=== PATIENT | male | born 2000 | race Two or more races ===

== ENCOUNTER 2024-05-06 01:00 | Inpatient (IN) | payer OTHER ==
[~2024-05-06] VITALS: Ht 172.7 cm; Wt 94.5 kg
[2024-05-06] VITALS (10 sets, daily range): BP systolic 115–121; BP diastolic 59–69; PULSE 68–93; RESP 14–70; TEMP 98.2–98.8; O2SAT 93–100
[2024-05-06 01:50] LABS: Basophils # (auto) 0.1 10 ^3/uL (0-0.2); Basophils % (auto) 0.4 % (0.0-2.0); Eosinophils # (auto) 0 10 ^3/uL (0-0.8); Lymphocytes # (auto) 1.3 10 ^3/uL (0.4-5.4); Mean Corpuscular Hemoglobin 32.9 pg (28.0-32.0)
[2024-05-06 01:52] LABS: Hemoglobin 20.4 g/dL (13.5-17.5); Lymphocytes % (auto) 7.7 % (10.0-50.0); Mean Corpuscular Hgb Conc. 35.4 g/dL (32.0-36.0); Monocytes # (auto) 0.6 10 ^3/uL (0-1.3); Monocytes % (auto) 3.4 % (0.0-12.0); Neutrophils # (auto) 14.5 10 ^3/uL (1.6-8.6); Neutrophils % (auto) 88.5 % (37.0-80.0); Platelet Count (auto) 187 10^3/uL (140-450); Red Cell Distribution Width 13.6 % (11.8-14.3); White Blood Cell 16.4 10^3/uL (4.4-10.8)
[2024-05-06 01:59] LABS: Hematocrit 57.7 % (41.0-53.0)
[2024-05-06 02:06] LABS: Albumin 4.6 g/dL (3.2-4.8); Alkaline Phosphatase 72 U/L (46-116); Anion Gap 13 (5-15); BUN/Creatinine Ratio 19.8 (10.0-20.0); Calcium 9.8 mg/dL (8.7-10.4); Carbon Dioxide 25 mmol/L (20-31); Chloride 99 mmol/L (98-107); Magnesium 2.4 mg/dL (1.6-2.6); Potassium 3.7 mmol/L (3.5-5.1); Sodium 137 mmol/L (136-145); Total Protein 7.3 g/dL (5.7-8.2)
[2024-05-06 02:09] LABS: Alanine Aminotransferase 221 U/L (7-40); Bilirubin, Total 1.2 mg/dL (0.2-1.0); Blood Urea Nitrogen 24 mg/dL (9-23); Glucose 126 mg/dL (74-106)
[2024-05-06 02:17] LABS: Creatine Kinase IFCC > 39000 U/L (46-171)
[2024-05-06 02:21] LABS: Aspartate Aminotransferase 1997 U/L (13-40)
[2024-05-06 03:17] LABS: Urine Amorphous Crystal FEW /hpf (None Seen); Urine Bacteria FEW /hpf (None Seen); Urine Blood 3+ /uL (Negative); Urine Clarity Turbid (Clear); Urine Color Dark-Brown (Yellow); Urine Mucus FEW (None Seen); Urine Protein, UAD 2+ (Negative); Urine Specific Gravity 1.027 (1.001-1.035); Urine Squamous Epithelial Cell None Seen /hpf (<5); Urine Urobilinogen Normal (Negative); Urine WBC 6 /HPF (0-3)
[2024-05-06] MEDS: SODIUM CHLORIDE 0.9% 1,000 ML IV ONE ×3 (03:45→06:22)
[2024-05-06 04:12] LABS: Uric Acid 10.4 mg/dL (3.7-9.2)
[2024-05-06 04:14] LABS: Phosphorus 4.8 mg/dL (2.4-5.1)
--- NOTE | 2024-05-06 04:17 | ED.PDOC ---
General HPI Comments 24-YEAR-OLD MALE PRESENTS TO ER URINARY COMPLAINT X1 DAY. PATIENT REPORTS HE HAS BEEN EXPERIENCING DARK BROWN URINE AND HEMATURIA ALONG WITH 4/10 DIFFUSE MUSCLE PAIN THAT STARTED AT 5 PM PRIOR TO ARRIVAL TO ER. HE STATES THAT HIS SYMPTOMS STARTED ONE DAY AFTER HE DID INTENSIVE EXERCISING. PATIENT PRESENTS TO ER AMBULATORY ON ARRIVAL, ALERT AND ORIENTED X 4, WITH STEADY GAIT, IN NO DISTRESS. DENIES FEVER, NAUSEA/VOMITING, ABDOMINAL PAIN, CONFUSION, HEADACHE, DIZZINESS, SHORTNESS OF BREATH, CHEST PAIN, PALPITATIONS, FURTHER CHANGES IN URINATION OR ANY FURTHER SYMPTOMS/COMPLAINTS Chief Complaint: Urinary Time Seen by MD: :24 Primary Care Provider: UNKNOWN Reviewed notes: Nurses Notes, Medications, Allergies Allergies: Coded Allergies: NO KNOWN ALLERGIES (Unverified , 05/06/24) Information Source: Patient Mode of Arrival: Ambulatory Past Medical History PAST MEDICAL HISTORY: Denies Surgical History: Denies all surgeries Family History Family History: Unknown Social History Smoker: Non-Smoker Alcohol: Denies ETOH Use Drugs: Denies Drug Use Lives In: Home Constitutional: denies: chills, diaphoresis, fatigue, fever, malaise, sweats, weakness, others EENTM: denies: blurred vision, double vision, ear bleeding, ear discharge, ear drainage, ear pain, ear ringing, eye pain, eye redness, hearing loss, mouth pain, mouth swelling, nasal discharge, nose bleeding, nose congestion, nose pain, photophobia, tearing, throat pain, throat swelling, voice changes, others Respiratory: denies: cough, hemoptysis, orthopnea, SOB at rest, shortness of breath, SOB with excertion, stridor, wheezing, others Cardiovascular: denies: chest pain, dizzy spells, diaphoresis, Dyspnea on exertion, edema, irregular heart beat, left arm pain, lightheadedness, palpitations, PND, syncope, others Gastrointestinal: denies: abdomen distended, abdominal pain, blood streaked bowels, constipated, diarrhea, dysphagia, difficulty swallowing, hematemesis, melena, nausea, poor appetite, poor fluid intake, rectal bleeding, rectal pain, vomiting, others Genitourinary: reports: others ( STATED IN HPI) Neurological: denies: dizziness, fainting, headache, left sided numbness, left sided weakness, numbness, paresthesia, pre-existing deficit, right sided numbness, right sided weakness, seizure, speech problems, tingling, tremors, weakness, others Musculoskeletal: reports: others ( STATED IN HPI) Integumetry: denies: bruises, change in color, change in hair/nails, dryness, laceration, lesions, lumps, rash, wounds, others Allergic/Immunocompromised: denies: Difficulty Healing, Frequent Infections, Hives, Itching, others Hematologic/Lymphatic: denies: anemia, blood clots, easy bleeding, easy bruising, swollen glands, others Endocrine: denies: excessive hunger, excessive sweating, excessive thirst, excessive urination, flushing, intolerance to cold, intolerance to heat, unexplained weight gain, unexplained weight loss, others Psychiatric: denies: anxiety, bipolar disorder, depression, hopeless, panic disorder, schizophrenia, sleepless, suicidal, others Physical Exam General Appearance: No Apparent Distress, Obese HEENT: Normal ENT Inspection, PERRL/EOMI, Pharynx Normal, TMs Normal Neck: Full Range of Motion, Non-Tender, Normal Respiratory: Chest Non-Tender, Lungs Clear, No Accessory Muscle Use, No Respiratory Distress, Normal Breath Sounds Cardiovascular: No Murmur, No Gallop, Regular Rate/Rhythm Breast Exam: Deferred Gastrointestinal: No Organomegaly, Non Tender, No Pulsatile Mass, Normal Bowel Sounds, Soft Genitalia: Deferred Pelvic: Deferred Rectal: Deferred Extremities: Normal capillary refill, Normal range of motion Neurologic: Alert, hand sizer II-XII nml as Tested, No Motor Deficits, Normal Affect, Normal Mood, No Sensory Deficits Cerebellar Function: Normal Reflexes: Normal Skin: Dry, Normal Color, Warm Peripheral Pulses: 2+ Radial (R), 2+ Radial (L), 2+ Brachial (R), 2+ Brachial (L) Lymphatic: No Adenopathy Was a procedure done? Was a procedure done?: No Sedation Sedation?: No EKG EKG : Pulse Rate (adult): 99 Cardiac Rhythm: NSR (SR) Block: None Hypertrophy: None ST: Normal Differential Diagnosis Kidney stone (Female): N/A Kidney stone (Male): Cholelithiasis, Renal failure, Renal infarction, Other (COMPARTMENT SYNDROME) X-Ray, Labs, Meds, VS Vital Signs Date Time Temp Pulse Resp B/P (MAP) Pulse Ox O2 Delivery O2 Flow Rate FiO2 05/06/24 04:17 99 05/06/24 04:13 98 16 98 Room Air 05/06/24 04:11 97.9 98 16 105/61 (76) 96 97.9 05/06/24 04:06 99 05/06/24 01:13 98.6 104 18 144/92 (109) 98 Lab Test 05/06/24 03:45 05/06/24 01:32 05/06/24 01:15 Range/Units Blood Gas Specimen Type Venous Blood Gas Sample Site Vbg - n/a Blood Gas Patient Temperature 37.0 Arterial Blood Date Drawn [id number] Inocencio Test N/a Venous Blood pH 7.346 7.320-7.430 Venous Blood pCO2 at Patient Temp 44.0 38.0-54.0 mmHg Venous Blood pO2 at Patient Temp < 36.5 23.0-48.0 mmHg Venous Blood HCO3 23.5 22.0-29.0 mmol/L Venous Blood Base Excess -2.2 L -2.0-3.0 mmol/L Blood Gas Modality Room air FiO2 % 21.0 White Blood Count 16.4 H 4.4-10.8 10^3/uL Red Blood Count 6.20 H 4.5-5.90 10^6/uL Hemoglobin 20.4 H 13.5-17.5 g/dL Hematocrit 57.7 H 41.0-53.0 % Mean Corpuscular Volume 93.0 80.0-100.0 fL Mean Corpuscular Hemoglobin 32.9 H 28.0-32.0 pg Mean Corpuscular Hemoglobin Concent 35.4 32.0-36.0 g/dL Red Cell Distribution Width 13.6 11.8-14.3 % Platelet Count 187 140-450 10^3/uL Mean Platelet Volume 8.0 6.9-10.8 fL Neutrophils (%) (Auto) 88.5 H 37.0-80.0 % Lymphocytes (%) (Auto) 7.7 L 10.0-50.0 % Monocytes (%) (Auto) 3.4 0.0-12.0 % Eosinophils (%) (Auto) 0.0 0.0-7.0 % Basophils (%) (Auto) 0.4 0.0-2.0 % Neutrophils # (Auto) 14.5 H 1.6-8.6 10 ^3/uL Lymphocytes # (Auto) 1.3 0.4-5.4 10 ^3/uL Monocytes # (Auto) 0.6 0-1.3 10 ^3/uL Eosinophils # (Auto) 0 0-0.8 10 ^3/uL Basophils # (Auto) 0.1 0-0.2 10 ^3/uL Nucleated Red Blood Cells 0.0 % Prothrombin Time 11.4 9.3-11.8 sec Prothrombin Time INR 1.08 0.9-1.15 Activated Partial Thromboplast Time 27.3 24.5-34.5 SEC Sodium Level 137 136-145 mmol/L Potassium Level 3.7 3.5-5.1 mmol/L Chloride Level 99 98-107 mmol/L Carbon Dioxide Level 25 20-31 mmol/L Anion Gap 13 5-15 Blood Urea Nitrogen 24 H 9-23 mg/dL Creatinine 1.21 0.700-1.30 mg/dL Glomerular Filtration Rate Calc 86 >90 mL/min BUN/Creatinine Ratio 19.8 10.0-20.0 Serum Glucose 126 H 74-106 mg/dL Uric Acid 10.4 H 3.7-9.2 mg/dL Calcium Level 9.8 8.7-10.4 mg/dL Phosphorus Level 4.8 2.4-5.1 mg/dL Magnesium Level 2.4 1.6-2.6 mg/dL Total Bilirubin 1.2 H 0.2-1.0 mg/dL Aspartate Amino Transferase (AST) 1997 H 13-40 U/L Alanine Aminotransferase (ALT) 221 H 7-40 U/L Alkaline Phosphatase 72 46-116 U/L Creatine Kinase > 72644 H 46-171 U/L Total Protein 7.3 5.7-8.2 g/dL Albumin 4.6 3.2-4.8 g/dL Urine Color Dark-brown Yellow Urine Clarity Turbid H Clear Urine pH 6.0 5.0-9.0 Urine Specific [place] 1.027 1.001-1.035 Urine Protein 2+ H Negative Urine Ketones 2+ H Negative Urine Blood 3+ H Negative /uL Urine Nitrite Negative Negative Urine Bilirubin Negative Negative Urine Urobilinogen Normal Negative mg/dL Urine Leukocyte Esterase Negative Negative /uL Urine RBC 11 0 - 3 /hpf Urine Microscopic WBC 6 H 0-3 /HPF Urine Squamous Epithelial Cells None seen <5 /hpf Urine Amorphous Crystals Few None Seen /hpf Urine Bacteria Few H None Seen /hpf Urine Mucus Few None Seen Urine Glucose Normal Normal mg/dL Current Medications Medications (Trade) Dose Ordered Sig/Brianna Route Start Time Stop Time Status Last Admin Sodium Chloride 1,000 ml @ 1,000 mls/hr Q1H ONCE IV 05/06/24 03:45 05/06/24 04:44 DC 05/06/24 03:45 Sodium Chloride 1,000 ml @ 1,000 mls/hr Q1H ONCE IV 05/06/24 03:45 05/06/24 04:44 DC 05/06/24 04:36 PATIENT: JONATHAN MENDEZCCT: [id number]: [id number] : 2000 LOC: ER ROOM / BED: / AGE / SEX: 24 / M ADM STATUS: REG ER SERVICE 0337 ORDERING PHYSICIAN: NASIR NARANJO PROCEDURE(s): ABPL - CT AB PEL WO CON-NO ORAL OR IV REASON: ABDOMINAL PAIN ORDER NUMBER(s): [id number], ACCESSION NUMBER(s): [id number] Exam: CT CT AB PEL WO CON-NO ORAL OR IV History: ABDOMINAL PAIN Comparison Study: None Technique: Multidetector spiral CT of the abdomen was performed from lung bases to pubic symphysis. Imaging was performed without IV contrast. Axial, coronal and sagittal multiplanar reformats were obtained from the axial data set by the technologist. Radiation Dose : 1. Abdomen/Pelvis: CTDIvol 12.1 mGy, DLP 616.9 mGy*cm. Findings: Evaluation of solid organs is limited due to lack of intravenous contrast use. Lung Bases: No acute or significant lung base finding. Normal heart size. No pleural or pericardial effusion. Liver: The liver is normal in size. No focal lesions. Gallbladder and Biliary Tree: Unremarkable Spleen: Unremarkable Pancreas: The pancreas is grossly normal in appearance. Adrenal Glands: Unremarkable Kidneys: Kidneys are grossly normal without calculi or hydronephrosis. Bladder: Grossly unremarkable for degree of distention. Bowel: The stomach is grossly normal in appearance. Moderate volume colonic stool. Normal appendix is visualized in the right lower quadrant without findings of appendicitis. Ascites: Absent Lymphadenopathy: No mesenteric, retroperitoneal or periportal lymphadenopathy. Abdominal Wall and Mesentery: Unremarkable. Vasculature: The visualized abdominal aorta is normal in size and caliber. Evaluation of abdominal and pelvic vessels is limited due to lack of intravenous contrast. Pelvic Organs: Unremarkable Musculoskeletal: No aggressive focal bony lesions, acute fractures or dislocation. IMPRESSION: Moderate volume colonic stool. Otherwise, no acute finding. Radiation optimization: All CT scans at this facility use at least one of these dose optimization techniques: automated exposure control mA and/or kV adjustment per patient size (includes targeted exams where dose is matched to clinical indication) or iterative reconstruction. ATED BY: JAYANT JOHNSON MD DICTATED DATE/TIME: 05/06/24457 SIGNED BY: JAYANT JOHNSON MD SIGNED DATE/TIME: 05/06/24457 CC: CBC reviewed -WBC 16.4 CMP reviewed- BUN 24, creatinine 1.21, bilirubin 1.2, AST 1997, ALT 221 Phosphorus and magnesium reviewed-normal Creatinine kinase [place] 35[address] reviewed Uric acid reviewed-10.2 VBG reviewed EKG reviewed CT abdomen/pelvis without contrast reviewed Urinalysis reviewed-urine color dark brown, urine protein 2+, urine ketones 2+, urine blood 3+ Hep-Lock IV ordered NS 1 L IV ordered NS 1 L IV ordered Patient resting comfortably at bedside in no distress Patient admitted to hospitalist fo rhabdomyolysis Time of 1ST Reevaluation: 03:44 Reevaluation 1ST: N/A Patient Education/Counseling: Diagnosis, Treatment, Prognosis, Need For Follow Up Family Education/Counseling: No Family Present Departure 1 Departure Time of Disposition: 04:08 Impression: Primary Impression: Rhabdomyolysis Qualified Codes: M62.82 - Rhabdomyolysis Disposition: 09 ADMITTED INPATIENT Condition: Serious Discharged With: Self Critical Care Note Critical Care Time?: No Stability Stability form required: No Heart Score Heart Score: Heart Score Response (Comments) Value History N/A 0 EKG N/A 0 Age N/A 0 Risk Factors N/A 0 Troponin N/A 0 Total 0 NASIR NARANJO May 06, 2024 04:17
[2024-05-06 04:18] LABS: INR 1.08 (0.9-1.15); Partial Thromboplastin Time 27.3 SEC (24.5-34.5); Prothrombin Time 11.4 sec (9.3-11.8)
--- NOTE | 2024-05-06 04:54 | DVHHPRES ---
History of Present Illness Resident Creating Document: MAX SALGADO RESDIENT History of Present Illness This is a 24-year-old male with no significant past medical history came to the hospital due to red urine. Per patient, the patient had strenuous exercise (weightlifting and running) 1 day back, on next day the patient developed generalized body pain and leg cramps (specifically the calf and feet) and the urine became dark we subsequently became red and more dark. Patient also reports nausea, sweating, cold, and urgency. Patient denies fever, shortness of breaths, chest pain, abdominal pain, any recent sick contact or travel history. PMHx: Not significant PSHx: Nonsignificant Family history: Patient has history of hypotension on father side and diabetes on mother's side Social history: Patient lives at home with family, denies smoking, alcohol or any other drug use Home medication: Ibuprofen occasionally for the pain Allergic history: No known allergy Review of Systems Review of Systems General: Patient reports generalized body pain and cold HEENT: No headaches, visiual changes, hearing loss, tinnitus, nasal congestion and discharge, and sore throat. Cardiovascular: Denies chest pain, palpitations, dyspnea on exertion, orthopnea, or claudication. Respiratory: No cough, and wheezing. Gastrointestinal: Denies nausea, vomiting, dysphagia, odynophagia, heartburn, abdominal pain, flatulence, bloating, diarrhea, constipation, change in stool, or blood in stool. Genitourinary: Reports urgency and red/dark urine Endocrine: No heat or cold intolerance, polydipsia, polyuria, and polyphagia. Neurological: No dizziness, extremity weakness and numbness, tremors, gait disturbance, seizures, and memory impairment. Psychiatric: Denies depression, anxiety,or insomnia. Musculoskeletal: Reports cough and feet pain Skin: No rashes, itching, skin lesion, changes in hair, nail, skin texture and breast. Hematologic/Lymphatic: Denies easy bruising, bleeding tendencies, or lymph node enlargement. Allergies: Coded Allergies: NO KNOWN ALLERGIES (Unverified , 05/06/24) Exam Vital Signs Vital Signs Date Time Temp Pulse Resp B/P (MAP) Pulse Ox O2 Delivery O2 Flow Rate FiO2 05/06/24 04:17 99 05/06/24 04:13 16 98 Room Air 05/06/24 04:11 97.9 105/61 (76) 97.9 Exam General Appearance: Alert, Oriented X3, Cooperative, No acute distress HEENT: Atraumatic, PERRLA, EOMI, Mucous membrane moist/pink Respiratory: Clear to auscultation, Normal air movement Cardiovascular: Regular rate, Normal S1, Normal S2, No murmurs, no chest wall tenderness Abdominal: Normal bowel sounds, Soft, No tenderness, No hepatospenomegaly, No masses Extremities: No clubbing, No cyanosis, No edema, Normal pulses, No tenderness/swelling Skin: No rashes, No breakdown, No significant lesion Neuro: Normal gait, Normal speech, Strength at 5/5 X4 ext, Normal tone, Sensation intact, Cranial nerves 3-12 NL, Reflexes 2+ Psych/Mental Status: Mental status NL, Mood NL Labs/Xrays Labs Test 05/06/24 03:45 05/06/24 01:32 05/06/24 01:15 Range/Units Blood Gas Specimen Type Venous Blood Gas Sample Site Vbg - n/a Blood Gas Patient Temperature 37.0 Arterial Blood Date Drawn [id number] Inocencio Test N/a Venous Blood pH 7.346 7.320-7.430 Venous Blood pCO2 at Patient Temp 44.0 38.0-54.0 mmHg Venous Blood pO2 at Patient Temp < 36.5 23.0-48.0 mmHg Venous Blood HCO3 23.5 22.0-29.0 mmol/L Venous Blood Base Excess -2.2 L -2.0-3.0 mmol/L Blood Gas Modality Room air FiO2 % 21.0 White Blood Count 16.4 H 4.4-10.8 10^3/uL Red Blood Count 6.20 H 4.5-5.90 10^6/uL Hemoglobin 20.4 H 13.5-17.5 g/dL Hematocrit 57.7 H 41.0-53.0 % Mean Corpuscular Volume 93.0 80.0-100.0 fL Mean Corpuscular Hemoglobin 32.9 H 28.0-32.0 pg Mean Corpuscular Hemoglobin Concent 35.4 32.0-36.0 g/dL Red Cell Distribution Width 13.6 11.8-14.3 % Platelet Count 187 140-450 10^3/uL Mean Platelet Volume 8.0 6.9-10.8 fL Neutrophils (%) (Auto) 88.5 H 37.0-80.0 % Lymphocytes (%) (Auto) 7.7 L 10.0-50.0 % Monocytes (%) (Auto) 3.4 0.0-12.0 % Eosinophils (%) (Auto) 0.0 0.0-7.0 % Basophils (%) (Auto) 0.4 0.0-2.0 % Neutrophils # (Auto) 14.5 H 1.6-8.6 10 ^3/uL Lymphocytes # (Auto) 1.3 0.4-5.4 10 ^3/uL Monocytes # (Auto) 0.6 0-1.3 10 ^3/uL Eosinophils # (Auto) 0 0-0.8 10 ^3/uL Basophils # (Auto) 0.1 0-0.2 10 ^3/uL Nucleated Red Blood Cells 0.0 % Prothrombin Time 11.4 9.3-11.8 sec Prothrombin Time INR 1.08 0.9-1.15 Activated Partial Thromboplast Time 27.3 24.5-34.5 SEC Sodium Level 137 136-145 mmol/L Potassium Level 3.7 3.5-5.1 mmol/L Chloride Level 99 98-107 mmol/L Carbon Dioxide Level 25 20-31 mmol/L Anion Gap 13 5-15 Blood Urea Nitrogen 24 H 9-23 mg/dL Creatinine 1.21 0.700-1.30 mg/dL Glomerular Filtration Rate Calc 86 >90 mL/min BUN/Creatinine Ratio 19.8 10.0-20.0 Serum Glucose 126 H 74-106 mg/dL Uric Acid 10.4 H 3.7-9.2 mg/dL Calcium Level 9.8 8.7-10.4 mg/dL Phosphorus Level 4.8 2.4-5.1 mg/dL Magnesium Level 2.4 1.6-2.6 mg/dL Total Bilirubin 1.2 H 0.2-1.0 mg/dL Aspartate Amino Transferase (AST) 1997 H 13-40 U/L Alanine Aminotransferase (ALT) 221 H 7-40 U/L Alkaline Phosphatase 72 46-116 U/L Creatine Kinase > 91576 H 46-171 U/L Total Protein 7.3 5.7-8.2 g/dL Albumin 4.6 3.2-4.8 g/dL Urine Color Dark-brown Yellow Urine Clarity Turbid H Clear Urine pH 6.0 5.0-9.0 Urine Specific [place] 1.027 1.001-1.035 Urine Protein 2+ H Negative Urine Ketones 2+ H Negative Urine Blood 3+ H Negative /uL Urine Nitrite Negative Negative Urine Bilirubin Negative Negative Urine Urobilinogen Normal Negative mg/dL Urine Leukocyte Esterase Negative Negative /uL Urine RBC 11 0 - 3 /hpf Urine Microscopic WBC 6 H 0-3 /HPF Urine Squamous Epithelial Cells None seen <5 /hpf Urine Amorphous Crystals Few None Seen /hpf Urine Bacteria Few H None Seen /hpf Urine Mucus Few None Seen Urine Glucose Normal Normal mg/dL Assessment/Plan Assessment/Plan Rhabdomyolysis IV normal saline 1-2 L per hour Maintenance of 300 NS mL/hour with a target of urine output 200-300 mL/hour until CK decreased <5000 per mL Monitoring potassium, calcium, phosphorus, CK, uric acid and RFTs Hyperuricemia Allopurinol 300 mg daily DIET: Regular diet CODE STATUS: Goal of care discussed for more than 23 minutes, full code DISPOSITION: Med/surge Patient's status and paln discussed with the patient. Case discussed with Dr. Hidalgo Plan discussed with: Patient, Other Date of Service: May 06, 2024 Billing Provider: AMERICA PAREDES MD Common Visit Codes: 26701-[id number] INP/OBS CARE (HIGH) NEALMELISSAELIZABETHCOCO RESDIJEFFREY May 06, 2024 04:54 AMERICA PAREDES MD May 06, 2024 09:33
--- NOTE | 2024-05-06 05:03 | DVH ---
Exam: CT CT AB PEL WO CON-NO ORAL OR IV History: ABDOMINAL PAIN Comparison Study: None Technique: Multidetector spiral CT of the abdomen was performed from lung bases to pubic symphysis. Imaging was performed without IV contrast. Axial, coronal and sagittal multiplanar reformats were ob tained from the axial data set by the technologist. Radiation Dose : 1. Abdomen/Pelvis: CTDIvol 12.1 mGy, DLP 616.9 mGy*cm. Findings: Evaluation of solid organs is limited due to lack of intravenous contrast use. Lung Bases: No acute or significant lung base finding. Normal heart size. No pleural or pericardial effusion. Liver: The liver is normal in size. No focal lesions. Gallbladder and Biliary Tree: Unremarkable Spleen: Unremarkable Pancreas: The pancreas is grossly normal in appearance. Adrenal Glands: Unremarkable Kidneys: Kidneys are grossly normal without calculi or hydronephrosis. Bladder: Grossly unremarkable for degree of distention. Bowel: The stomach is grossly normal in appearance. Moderate volume colonic stool. Normal appendix i s visualized in the right lower quadrant without findings of appendicitis. Ascites: Absent Lymphadenopathy: No mesenteric, retroperitoneal or periportal lymphadenopathy. Abdominal Wall and Mesentery: Unremarkable. Vasculature: The visualized abdominal aorta is normal in size and caliber. Evaluation of abdominal a nd pelvic vessels is limited due to lack of intravenous contrast. Pelvic Organs: Unremarkable Musculoskeletal: No aggressive focal bony lesions, acute fractures or dislocation. IMPRESSION: Moderate volume colonic stool. Otherwise, no acute finding. Radiation optimization: All CT scans at this facility use at least one of these dose optimization alberto hniques: automated exposure control mA and/or kV adjustment per patient size (includes targeted exam s where dose is matched to clinical indication) or iterative reconstruction.
[2024-05-06] MEDS ORDERED: AMPICILLIN & SULBACTAM SODIUM 3 GM in SODIUM CHL 0.9% 100 ML IV SCH ×2 (06:00→06:15)
--- NOTE | 2024-05-06 07:01 | DVH ---
INDICATION: Raised LFT TECHNIQUE: Multiple real-time sonographic images were obtained of the right upper quadrant. COMPARISON: None FINDINGS: The liver demonstrates homogenous echotexture without focal mass lesions. The liver measure s 14cm. There is no intrahepatic or extrahepatic ductal dilatation. The common duct measures 0.4 mm. The gallbladder is without evidence of stone or sludge. The gallbladder wall measures 0.1 mm and is within normal limits. The right kidney measures 10 cm. The right kidney is normal in contour, size, and shape. The echog enicity is normal. There is no hydronephrosis. The pancreas is not well visualized due to overlying bowel gas. IMPRESSION: No sonographic evidence of gallstones or acute cholecystitis.
[2024-05-06 07:05] LABS: Albumin 3.7 g/dL (3.2-4.8); Alkaline Phosphatase 57 U/L (46-116); Anion Gap 9 (5-15); BUN/Creatinine Ratio 19.5 (10.0-20.0); Bilirubin, Total 0.9 mg/dL (0.2-1.0); Carbon Dioxide 24 mmol/L (20-31); Chloride 104 mmol/L (98-107); Potassium 3.9 mmol/L (3.5-5.1); Sodium 137 mmol/L (136-145)
[2024-05-06 07:06] LABS: Total Protein 5.9 g/dL (5.7-8.2)
[2024-05-06 07:12] LABS: Alanine Aminotransferase 217 U/L (7-40); Blood Urea Nitrogen 23 mg/dL (9-23); Calcium 8.7 mg/dL (8.7-10.4); Glucose 119 mg/dL (74-106); Uric Acid 9.6 mg/dL (3.7-9.2)
[2024-05-06 07:23] LABS: Aspartate Aminotransferase 1861 U/L (13-40); Creatine Kinase IFCC > 39000 U/L (46-171)
--- NOTE | 2024-05-06 07:24 | ECG ---
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
[2024-05-06] MEDS: SODIUM CHLORIDE 0.9% 1,000 ML IV SCH (07:31)
[2024-05-06 08:07] LABS: Blood Alcohol < 3.0 mg/dL (<10)
[2024-05-06 08:09] LABS: Amphetamine Screen, Urine Neg (NEGATIVE); Barbiturate Scree,Urine Neg (NEGATIVE); Benzodiazephine Screen, Urine Neg (NEGATIVE); Cannabinoid Screen, Urine Neg (NEGATIVE); Cocaine Screen, Urine Neg (NEGATIVE); Opiate Scree,Urine Neg (NEGATIVE); Phencyclidine Screen, Urine Neg (NEGATIVE)
[2024-05-06] MEDS: AMPICILLIN & SULBACTAM SODIUM 3 GM in SODIUM CHL 0.9% 100 ML IV ONE (08:48)
--- NOTE | 2024-05-06 09:25 | DVH ---
CHEST RADIOGRAPH Indication: dyspnea Technique: Single frontal view of the chest was obtained COMPARISON: None FINDINGS: Lines and Tubes: None Lungs: Clear Pleura: No effusion. No pneumothorax. Cardiomediastinal contours: Unremarkable Bones: Unremarkable IMPRESSION: No acute disease.
[2024-05-06] MEDS: ALLOPURINOL 100 MG TAB PO SCH (09:30)
[2024-05-06 09:42] LABS: Base Excess -4.9 mmol/L (-2.0-3.0)
[2024-05-06] MEDS: SODIUM CHLORIDE 0.9% 2,000 ML IV ONE (12:55)
[2024-05-06] MEDS: FUROSEMIDE 20 MG/2 ML VIAL IV ONE (15:18)
[2024-05-06 15:40] LABS: Potassium 3.8 mmol/L (3.5-5.1); Sodium 140 mmol/L (136-145)
[2024-05-06 15:41] LABS: Anion Gap 10 (5-15); Carbon Dioxide 22 mmol/L (20-31)
[2024-05-06 15:46] LABS: Blood Urea Nitrogen 20 mg/dL (9-23); Glucose 103 mg/dL (74-106)
[2024-05-06 15:49] LABS: Chloride 108 mmol/L (98-107)
--- NOTE | 2024-05-06 16:18 | DVHPNRES ---
Progress Note Date Seen: May 06, 2024 Resident Creating Document: JULITO MCCALL RESIDENT Has the PT tested + for MRSA If YES, has PT been informed?: No Medical Necessity Reason Pt with a Central, PICC or Fol: No Subjective Review of Systems A 24-year-old male with no significant past medical history came to the hospital due to red urine. Per patient, the patient had strenuous exercise (weightlifting and running) 1 day back, on next day the patient developed generalized body pain and leg cramps (specifically the calf and feet) and the urine became dark we subsequently became red and more dark. Patient also reports nausea, sweating, cold, and urgency. Patient denies fever, shortness of breaths, chest pain, abdominal pain, any recent sick contact or travel history. PMHx: Not significant PSHx: Nonsignificant Family history: Patient has history of hypotension on father side and diabetes on mother's side Social history: Patient lives at home with family, denies smoking, alcohol or any other drug use Home medication: Ibuprofen occasionally for the pain Allergic history: No known allergy Objective vital signs Vital Sign Date Time Temp Pulse Resp B/P (MAP) Pulse Ox O2 Delivery O2 Flow Rate FiO2 05/06/24 15:39 98.5 77 18 115/66 (82) 98 98.5 05/06/24 10:04 Room Air* 0 21 Total Intake and Output 05/05/24 05/05/24 05/06/24 15:00 23:00 07:00 Intake Total 2000 ml Balance 2000 ml medications Current Medications Medications Dose Ordered Sig/Brianna Route Start Time Stop Time Status Last Admin Dose Admin Sodium Chloride 1,000 ml @ 300 mls/hr Q3H20M IV 05/06/24 05:45 05/06/24 15:55 300 MLS/HR Ampicillin Sodium/ Sulbactam Sodium 3 gm/Sodium Chloride 100 ml @ 100 mls/hr ONCE IV 05/06/24 06:15 UNV Allopurinol 200 mg DAILY PO 05/06/24 10:00 05/06/24 09:30 200 MG Examination General Appearance: Alert, Oriented X3, Cooperative, No acute distress HEENT: Atraumatic, PERRLA, EOMI, Mucous membrane moist/pink Respiratory: Clear to auscultation, Normal air movement Cardiovascular: Regular rate, Normal S1, Normal S2, No murmurs, no chest wall tenderness Abdominal: Normal bowel sounds, Soft, No tenderness, No hepatospenomegaly, No masses Extremities: No clubbing, No cyanosis, No edema, Normal pulses, No tenderness/swelling Skin: No rashes, No breakdown, No significant lesion Neuro: Normal gait, Normal speech, Strength at 5/5 X4 ext, Normal tone, Sensation intact, Cranial nerves 3-12 NL, Reflexes 2+ Psych/Mental Status: Mental status NL, Mood NL laboratory and microbiology Laboratory Tests 05/06/24 12:51 05/06/24 01:32 Test 05/06/24 12:51 Range/Units Serum Glucose 103 74-106 mg/dL Problem List/Assessment/Plan Problem List/Assessment/Plan #Rhabdomyolysis #Dehydration #SIRS without OD #GOVIND due to rhabdomyolisis IV normal saline, bolus 2 LT Urine output : 2cc/kg/h: lasix IV once Maintenance of 300 NS mL/hour BMP every 12h #Hyperuricemia Allopurinol 300 mg daily DIET: Regular diet CODE STATUS: Goal of care discussed for more than 23 minutes, full code DISPOSITION: Med/surge Patient's status and plan discussed with the patient. Case discussed with Dr. Frey Plan discussed with: Patient, Other (rn ) My Orders My Orders Orders - JULITO MCCALL Procedure Category Date Status Time Abg W/ Co-Ox RT 05/06/24 Logged 09:08 Chest Xray 1 View XY 05/06/24 Resulted 09:10 Regular Diet DIET 05/06/24 Transmitted Lunch Strict I & O PRATIK 05/06/24 In Process 11:23 Strict I&O ED NURSING 05/06/24 Transmitted Date of Service: May 06, 2024 Billing Provider: BRIDGET FREY MD Common Visit Codes: [id number] INP/OBS CARE(HIGH) JULITO MCCALL May 06, 2024 16:18 BRIDGET FREY MD May 07, 2024 09:24
[2024-05-06 18:57] LABS: Albumin 3.9 g/dL (3.2-4.8); Alkaline Phosphatase 56 U/L (46-116); Anion Gap 8 (5-15); BUN/Creatinine Ratio 14.9 (10.0-20.0); Blood Urea Nitrogen 18 mg/dL (9-23); Carbon Dioxide 24 mmol/L (20-31); Glucose 99 mg/dL (74-106); Potassium 3.9 mmol/L (3.5-5.1); Sodium 141 mmol/L (136-145)
[2024-05-06 18:58] LABS: Bilirubin, Total 0.8 mg/dL (0.2-1.0)
[2024-05-06] MEDS: ONDANSETRON HCL 4 MG/2 ML VIAL IV ONE (19:05)
[2024-05-06 19:14] LABS: Alanine Aminotransferase 281 U/L (7-40); Aspartate Aminotransferase 2159 U/L (13-40); Calcium 8.3 mg/dL (8.7-10.4); Chloride 109 mmol/L (98-107); Total Protein 5.5 g/dL (5.7-8.2)
[2024-05-07 01:00] VITALS: BP 122/67; PULSE 71; RESP 17; TEMP 98.3; O2SAT 96
[2024-05-07 01:02] LABS: Albumin 3.5 g/dL (3.2-4.8); Alkaline Phosphatase 48 U/L (46-116); Anion Gap 8 (5-15); BUN/Creatinine Ratio 13.4 (10.0-20.0); Bilirubin, Total 0.9 mg/dL (0.2-1.0); Blood Urea Nitrogen 15 mg/dL (9-23); Carbon Dioxide 24 mmol/L (20-31); Glucose 89 mg/dL (74-106); Sodium 142 mmol/L (136-145)
[2024-05-07 01:13] LABS: Alanine Aminotransferase 247 U/L (7-40); Aspartate Aminotransferase 1868 U/L (13-40); Calcium 8.5 mg/dL (8.7-10.4); Chloride 110 mmol/L (98-107); Total Protein 5.5 g/dL (5.7-8.2)
[2024-05-07 05:00] VITALS: BP 105/56; PULSE 85; RESP 18; TEMP 97.9; O2SAT 100
[2024-05-07 07:19] LABS: Basophils # (auto) 0 10 ^3/uL (0-0.2); Basophils % (auto) 0.3 % (0.0-2.0); Eosinophils # (auto) 0 10 ^3/uL (0-0.8); Eosinophils % (auto) 0.4 % (0.0-7.0); Hematocrit 41.9 % (41.0-53.0); Hemoglobin 14.6 g/dL (13.5-17.5); Lymphocytes # (auto) 1.3 10 ^3/uL (0.4-5.4); Mean Corpuscular Hgb Conc. 34.8 g/dL (32.0-36.0); Mean Corpuscular Volume 94.8 fL (80.0-100.0); Monocytes # (auto) 0.6 10 ^3/uL (0-1.3); Monocytes % (auto) 8.6 % (0.0-12.0); Neutrophils # (auto) 4.7 10 ^3/uL (1.6-8.6); Neutrophils % (auto) 70.7 % (37.0-80.0); Platelet Count (auto) 121 10^3/uL (140-450); Red Blood Cells 4.42 10^6/uL (4.5-5.90); Red Cell Distribution Width 13.8 % (11.8-14.3); White Blood Cell 6.7 10^3/uL (4.4-10.8)
[2024-05-07 07:28] LABS: Anion Gap 10 (5-15); Blood Urea Nitrogen 11 mg/dL (9-23); Carbon Dioxide 20 mmol/L (20-31); Glucose 80 mg/dL (74-106); Potassium 3.9 mmol/L (3.5-5.1); Sodium 141 mmol/L (136-145)
[2024-05-07 07:29] LABS: Albumin 3.4 g/dL (3.2-4.8); Bilirubin, Total 0.7 mg/dL (0.2-1.0)
[2024-05-07 07:44] LABS: Alanine Aminotransferase 235 U/L (7-40); Alkaline Phosphatase 45 U/L (46-116); Aspartate Aminotransferase 1606 U/L (13-40); Calcium 7.8 mg/dL (8.7-10.4); Chloride 111 mmol/L (98-107)
[2024-05-07 08:00] VITALS: PULSE 75; PULSE 81; RESP 19; O2SAT 93
[2024-05-07 08:38] VITALS: BP 108/51; PULSE 58; RESP 18; TEMP 98.8; O2SAT 92
[2024-05-07 13:00] VITALS: BP 114/68; PULSE 80; RESP 18; TEMP 98.2; O2SAT 94
[2024-05-07 13:09] VITALS: BP 122/84; PULSE 79; RESP 18; TEMP 37.1; O2SAT 100
[2024-05-07 13:57] LABS: Albumin 3.5 g/dL (3.2-4.8); Alkaline Phosphatase 51 U/L (46-116); Anion Gap 7 (5-15); Blood Urea Nitrogen 13 mg/dL (9-23); Carbon Dioxide 25 mmol/L (20-31); Glucose 99 mg/dL (74-106); Potassium 3.9 mmol/L (3.5-5.1); Sodium 142 mmol/L (136-145)
[2024-05-07 13:58] LABS: Bilirubin, Total 0.6 mg/dL (0.2-1.0)
[2024-05-07 14:08] LABS: Alanine Aminotransferase 260 U/L (7-40); Aspartate Aminotransferase 1698 U/L (13-40); Calcium 8.2 mg/dL (8.7-10.4); Chloride 110 mmol/L (98-107)
--- NOTE | 2024-05-07 15:41 | DVHDSRES ---
Discharge Summary Date of Admission Resident Creating Document: JULITO MCCALL RESIDENT May 06, 2024 at 04:53 Date of Discharge: May 07, 2024 Admitting Diagnosis Rhabdomyolysis Labs/Diagnostic Data: Laboratory Results Test 05/07/24 13:14 05/07/24 05:56 05/06/24 12:51 05/06/24 09:36 Sodium Level 142 mmol/L (136-145) Potassium Level 3.9 mmol/L (3.5-5.1) Chloride Level 110 mmol/L (98-107) Carbon Dioxide Level 25 mmol/L (20-31) Anion Gap 7 (5-15) Blood Urea Nitrogen 13 mg/dL (9-23) Creatinine 1.08 mg/dL (0.700-1.30) Glomerular Filtration Rate Calc 98 mL/min (>90) BUN/Creatinine Ratio 12.0 (10.0-20.0) Serum Glucose 99 mg/dL (74-106) Calcium Level 8.2 mg/dL (8.7-10.4) Total Bilirubin 0.6 mg/dL (0.2-1.0) Aspartate Amino Transferase (AST) 1698 U/L (13-40) Alanine Aminotransferase (ALT) 260 U/L (7-40) Alkaline Phosphatase 51 U/L (46-116) Total Protein 5.0 g/dL (5.7-8.2) Albumin 3.5 g/dL (3.2-4.8) White Blood Count 6.7 10^3/uL (4.4-10.8) Red Blood Count 4.42 10^6/uL (4.5-5.90) Hemoglobin 14.6 g/dL (13.5-17.5) Hematocrit 41.9 % (41.0-53.0) Mean Corpuscular Volume 94.8 fL (80.0-100.0) Mean Corpuscular Hemoglobin 33.0 pg (28.0-32.0) Mean Corpuscular Hemoglobin Concent 34.8 g/dL (32.0-36.0) Red Cell Distribution Width 13.8 % (11.8-14.3) Platelet Count 121 10^3/uL (140-450) Mean Platelet Volume 8.2 fL (6.9-10.8) Neutrophils (%) (Auto) 70.7 % (37.0-80.0) Lymphocytes (%) (Auto) 20.0 % (10.0-50.0) Monocytes (%) (Auto) 8.6 % (0.0-12.0) Eosinophils (%) (Auto) 0.4 % (0.0-7.0) Basophils (%) (Auto) 0.3 % (0.0-2.0) Neutrophils # (Auto) 4.7 10 ^3/uL (1.6-8.6) Lymphocytes # (Auto) 1.3 10 ^3/uL (0.4-5.4) Monocytes # (Auto) 0.6 10 ^3/uL (0-1.3) Eosinophils # (Auto) 0 10 ^3/uL (0-0.8) Basophils # (Auto) 0 10 ^3/uL (0-0.2) Nucleated Red Blood Cells 0.0 % Phosphorus Level 3.3 mg/dL (2.4-5.1) Creatine Kinase > 37261 U/L (46-171) Blood Gas Specimen Type Arterial Blood Gas Sample Site Right radial Blood Gas Patient Temperature 37.0 Arterial Blood Date Drawn [id number] Arterial Blood pH 7.399 (7.350-7.450) Arterial Blood Partial Pressure CO2 30.3 mmHg (35.0-48.0) Arterial Blood Partial Pressure O2 82.7 mmHg (83.0-108.0) Arterial Blood HCO3 18.3 mmol/L (21.0-28.0) Arterial Blood Oxygen Saturation 96.1 % (94.0-98.0) Arterial Blood Base Excess -4.9 mmol/L (-2.0-3.0) Arterial Blood Oxyhemoglobin 95.3 % (94.0-98.0) Arterial Blood Carboxyhemoglobin 0.2 % (0.5-1.5) Arterial Blood Methemoglobin 0.6 % (0.0-1.5) Inocencio Test Yes Blood Gas Total Hemoglobin 17.70 g/dL (13.5-17.5) Blood Gas Modality Room air FiO2 % 21.0 Test 05/06/24 06:14 05/06/24 03:45 05/06/24 01:32 05/06/24 01:15 Uric Acid 9.6 mg/dL (3.7-9.2) Lactate Dehydrogenase > 4500 U/L (120-246) Thyroid Stimulating Hormone (TSH) 2.06 uIU/mL (0.55-4.78) Plasma/Serum Blood Alcohol < 3.0 mg/dL (<10) Venous Blood pH 7.346 (7.320-7.430) Venous Blood pCO2 at Patient Temp 44.0 mmHg (38.0-54.0) Venous Blood pO2 at Patient Temp < 36.5 mmHg (23.0-48.0) Venous Blood HCO3 23.5 mmol/L (22.0-29.0) Venous Blood Base Excess -2.2 mmol/L (-2.0-3.0) Prothrombin Time 11.4 sec (9.3-11.8) Prothrombin Time INR 1.08 (0.9-1.15) Activated Partial Thromboplast Time 27.3 SEC (24.5-34.5) Magnesium Level 2.4 mg/dL (1.6-2.6) Urine Color Dark-brown (Yellow) Urine Clarity Turbid (Clear) Urine pH 6.0 (5.0-9.0) Urine Specific [place] 1.027 (1.001-1.035) Urine Protein 2+ (Negative) Urine Ketones 2+ (Negative) Urine Blood 3+ /uL (Negative) Urine Nitrite Negative (Negative) Urine Bilirubin Negative (Negative) Urine Urobilinogen Normal mg/dL (Negative) Urine Leukocyte Esterase Negative /uL (Negative) Urine RBC 11 /hpf (0 - 3) Urine Microscopic WBC 6 /HPF (0-3) Urine Squamous Epithelial Cells None seen /hpf (<5) Urine Amorphous Crystals Few /hpf (None Seen) Urine Bacteria Few /hpf (None Seen) Urine Mucus Few (None Seen) Urine Glucose Normal mg/dL (Normal) Urine Opiates Screen Neg (NEGATIVE) Urine Fentanyl Screen Neg (NEGATIVE) Urine Barbiturates Screen Neg (NEGATIVE) Urine Phencyclidine Screen Neg (NEGATIVE) Urine Amphetamines Screen Neg (NEGATIVE) Urine Benzodiazepines Screen Neg (NEGATIVE) Urine Cocaine Screen Neg (NEGATIVE) Urine Cannabinoids Screen Neg (NEGATIVE) Other Laboratory Tests 05/07/24 13:14 05/07/24 05:56 Brief Hx & Hospital Course: A 24-year-old male presented with complaints of dark red urine, generalized body pain, and leg cramps following strenuous exercise. His evaluation revealed rhabdomyolysis with secondary dehydration, hyperuricemia, and mild acute kidney injury (GOVIND) which resolved w). Treatment included aggressive intravenous fluid resuscitation with normal saline. Urine output was monitored to maintain a goal of at least 2 cc/kg/hr, and diuresis was achieved with a single dose of intravenous Lasix. The patient was also started on allopurinol 300 mg daily for hyperuricemia. The patient's condition improved significantly with treatment. No electrolyte imbalances, EKG changes. He was stable upon discharge, tolerating a regular diet and ambulating with light activity. Discharge instructions emphasized the importance of high fluid intake (2 to 3 liters daily) to prevent recurrence and light physical activity for gradual recovery. Follow-up was arranged in 7 days to check basic metabolic panels (BMP) and ensure ongoing clinical stability. No new medications were prescribed at discharge. Operations or Procedures History: ABDOMINAL PAIN Comparison Study: None Technique: Multidetector spiral CT of the abdomen was performed from lung bases to pubic symphysis. Imaging was performed without IV contrast. Axial, coronal and sagittal multiplanar reformats were obtained from the axial data set by the technologist. Radiation Dose : 1. Abdomen/Pelvis: CTDIvol 12.1 mGy, DLP 616.9 mGy*cm. Findings: Evaluation of solid organs is limited due to lack of intravenous contrast use. Lung Bases: No acute or significant lung base finding. Normal heart size. No pleural or pericardial effusion. Liver: The liver is normal in size. No focal lesions. Gallbladder and Biliary Tree: Unremarkable Spleen: Unremarkable Pancreas: The pancreas is grossly normal in appearance. Adrenal Glands: Unremarkable Kidneys: Kidneys are grossly normal without calculi or hydronephrosis. Bladder: Grossly unremarkable for degree of distention. Bowel: The stomach is grossly normal in appearance. Moderate volume colonic stool. Normal appendix is visualized in the right lower quadrant without findings of appendicitis. Ascites: Absent Lymphadenopathy: No mesenteric, retroperitoneal or periportal lymphadenopathy. Abdominal Wall and Mesentery: Unremarkable. Vasculature: The visualized abdominal aorta is normal in size and caliber. Evaluation of abdominal and pelvic vessels is limited due to lack of intravenous contrast. Pelvic Organs: Unremarkable Musculoskeletal: No aggressive focal bony lesions, acute fractures or dislocation. IMPRESSION: Moderate volume colonic stool. Otherwise, no acute finding. Condition at Discharge: Stable Final Diagnosis/Problems List #Rhabdomyolysis #Dehydration #SIRS without OD #GOVIND due to rhabdomyolisis #Hyperuricemia Discharge Disposition: Home Discharge Instruct/Medications Diet: Regular Diet comment: High fluid intake: 2 to 3 liters per day Activity: Light activity Follow Up/Referral: dc clinic in 7 days to check BMP Medications: no need Discharge Statement: "Patient was advised to return to the ER or call 911 if any headaches, dizziness, shortness of breath, chest pain, abdominal pain, bleeding, fevers, or worsening of medical condition. Patient was counseled about treatment plan, medications, possible side effects, patientverbalized understanding. All questions were answered to the best of my ability. This discharge took greater then 30 minutes in planning, reviewing documentation, counseling the patient, and discussing with other team members." ASSESSMENT ASSESSMENT Assessment Rhabdomyolysis JULITO MCCALL RESIDENT May 07, 2024 15:41
== END 2024-05-07 15:10 | disposition home or self-care (01) | DRG 558 ==
LOC: ER 01:00 → OVERFLOW 04:53 → CENTRAL 16:16 → TELE-CENTR 05-07 07:03
PROVIDERS: ADMIT Student in an Organized Health Care Education/Training Program; ATTEND Student in an Organized Health Care Education/Training Program
DX: M62.82 Rhabdomyolysis (principal); R65.10 Systemic inflammatory response syndrome (SIRS) of non-infectious origin without acute organ dysfunction; E79.0 Hyperuricemia without signs of inflammatory arthritis and tophaceous disease; E86.0 Dehydration; Z79.899 Other long term (current) drug therapy
CPT/HCPCS: 36415; 36600; 71045; 74176; 76705; 80048; 80053; 80307; 80320; 81001; 82550; 82805; 83615; 83735; 84100; 84443; 84550; 85025; 85610; 85730; 93005; G0378; J2405

== ENCOUNTER → 2024-05-19 | Outpatient (CLI) | payer OTHER ==
[2024-05-19 10:43] LABS: Alanine Aminotransferase 196 U/L (7-40); Albumin 4.8 g/dL (3.2-4.8); Alkaline Phosphatase 70 U/L (46-116); Anion Gap 9 (5-15); Aspartate Aminotransferase 60 U/L (13-40); BUN/Creatinine Ratio 12.7 (10.0-20.0); Blood Urea Nitrogen 14 mg/dL (9-23); Carbon Dioxide 29 mmol/L (20-31); Chloride 101 mmol/L (98-107); Creatine Kinase IFCC 560 U/L (46-171); Glucose 106 mg/dL (74-106); Potassium 4.2 mmol/L (3.5-5.1); Sodium 139 mmol/L (136-145)
[2024-05-19 10:46] LABS: Bilirubin, Total 0.6 mg/dL (0.2-1.0)
[2024-05-19 10:47] LABS: Total Protein 7.3 g/dL (5.7-8.2)
[2024-05-19 11:47] LABS: Uric Acid 7.3 mg/dL (3.7-9.2)
== END | disposition home or self-care (01) ==
LOC: LAB 09:39
PROVIDERS: ATTEND Internal Medicine
DX: Z00.01 Encounter for general adult medical examination with abnormal findings (principal); R74.8 Abnormal levels of other serum enzymes
CPT/HCPCS: 36415; 80053; 82550; 84550

== ENCOUNTER 2024-10-27 08:35 | Outpatient (CLI) | payer OTHER ==
[2024-10-27 10:29] LABS: Hematocrit 49.5 % (41.0-53.0); Hemoglobin 17.5 g/dL (13.5-17.5); Mean Corpuscular Hemoglobin 32.9 pg (28.0-32.0); Mean Corpuscular Volume 93.2 fL (80.0-100.0); Nucleated Red Blood Cells % 0.2 %
[2024-10-27 10:47] LABS: Albumin 4.6 g/dL (3.2-4.8); Alkaline Phosphatase 64 U/L (46-116); Anion Gap 10 (5-15); BUN/Creatinine Ratio 13.0 (10.0-20.0); Blood Urea Nitrogen 13 mg/dL (9-23); Calcium 10.0 mg/dL (8.7-10.4); Carbon Dioxide 28 mmol/L (20-31); Chloride 102 mmol/L (98-107); Glucose 87 mg/dL (74-106); Sodium 140 mmol/L (136-145); Total Protein 7.0 g/dL (5.7-8.2); Triglycerides 141 mg/dL (< 150)
[2024-10-27 10:48] LABS: Bilirubin, Total 1.0 mg/dL (0.2-1.0); HDL Cholesterol 44 mg/dL (40-59)
[2024-10-27 10:49] LABS: Alanine Aminotransferase 61 U/L (7-40); Cholesterol 211 mg/dL (< 200); Potassium 3.5 mmol/L (3.5-5.1)
[2024-10-27 12:05] LABS: Urine Protein, UAD Negative (Negative)
[2024-10-27 12:07] LABS: Urine WBC Clumps <1.0 /hpf (None Seen)
== END 2024-10-27 17:00 | disposition home or self-care (01) ==
LOC: LAB 08:35
PROVIDERS: ATTEND Internal Medicine
DX: N17.9 Acute kidney failure, unspecified (principal); E66.811 Obesity, class 1; E86.0 Dehydration
CPT/HCPCS: 36415; 80053; 80061; 81001; 83036; 84439; 84443; 85025

== ENCOUNTER 2025-02-09 08:46 | Outpatient (CLI) | payer OTHER ==
[2025-02-09 09:48] LABS: Albumin 4.6 g/dL (3.2-4.8); Alkaline Phosphatase 75 U/L (46-116); Anion Gap 9 (5-15); BUN/Creatinine Ratio 13.6 (10.0-20.0); Bilirubin, Total 1.1 mg/dL (0.2-1.0); Blood Urea Nitrogen 14 mg/dL (9-23); Calcium 9.3 mg/dL (8.7-10.4); Carbon Dioxide 29 mmol/L (20-31); Chloride 104 mmol/L (98-107); Creatine Kinase IFCC 123 U/L (46-171); Glucose 99 mg/dL (74-106); Potassium 3.7 mmol/L (3.5-5.1); Sodium 142 mmol/L (136-145); Total Protein 7.5 g/dL (5.7-8.2)
[2025-02-09 09:49] LABS: Alanine Aminotransferase 108 U/L (7-40)
== END 2025-02-09 17:00 | disposition home or self-care (01) ==
LOC: LAB 08:46
PROVIDERS: ATTEND Internal Medicine
DX: R74.8 Abnormal levels of other serum enzymes (principal)
CPT/HCPCS: 36415; 80053; 82550